=== PATIENT | male | born 1955 | race Caucasian/White ===

== ENCOUNTER 2020-10-14 07:35 | Outpatient (REF) | payer OTHER, SELFPAY ==
--- NOTE | ~2020-10-14 | XR_ITS ---
EXAMINATION: XR KNEE, RIGHT XR KNEE AP STANDING CLINICAL INFORMATION: Pain. COMPARISON: Prior radiographs dated 01/01/2019 and 09/23/2015. TECHNIQUE: AP, lateral, tunnel, and sunrise views of the right knee. AP bilateral standing view of the knees was obtained. FINDINGS: Bony alignment and mineralization are normal. There is marked right knee tricompartment osteoarthritis, with joint space narrowing and peripheral osteophyte formation. Multiple right knee loose bodies are redemonstrated. A moderate right knee joint effusion is suspected. No fracture is seen. There is no foreign body. There is very mild narrowing of the medial and lateral joint space compartments of the left knee, with small peripheral osteophytes. Question small loose body within the lateral joint space compartment. There is a slight valgus configuration of the right knee. No significant varus or valgus configuration is seen of the left knee. XR/XR knee RT 2V IMPRESSION: 1. There is marked tricompartment osteoarthritic change of the right knee, similar in appearance to 01/01/2019 and increased from 09/22/2015. 2. Right knee loose bodies are seen. 3. There is a slight valgus configuration of the right knee. 4. There is very mild osteoarthritic change of the lateral and medial joint space compartments of the left knee. 5. Question small loose body within the lateral joint space compartment of the left knee.
--- NOTE | ~2020-10-14 | XR_ITS ---
EXAMINATION: XR KNEE, RIGHT XR KNEE AP STANDING CLINICAL INFORMATION: Pain. COMPARISON: Prior radiographs dated 01/01/2019 and 09/23/2015. TECHNIQUE: AP, lateral, tunnel, and sunrise views of the right knee. AP bilateral standing view of the knees was obtained. FINDINGS: Bony alignment and mineralization are normal. There is marked right knee tricompartment osteoarthritis, with joint space narrowing and peripheral osteophyte formation. Multiple right knee loose bodies are redemonstrated. A moderate right knee joint effusion is suspected. No fracture is seen. There is no foreign body. There is very mild narrowing of the medial and lateral joint space compartments of the left knee, with small peripheral osteophytes. Question small loose body within the lateral joint space compartment. There is a slight valgus configuration of the right knee. No significant varus or valgus configuration is seen of the left knee. XR/XR knee standing BI IMPRESSION: 1. There is marked tricompartment osteoarthritic change of the right knee, similar in appearance to 01/01/2019 and increased from 09/22/2015. 2. Right knee loose bodies are seen. 3. There is a slight valgus configuration of the right knee. 4. There is very mild osteoarthritic change of the lateral and medial joint space compartments of the left knee. 5. Question small loose body within the lateral joint space compartment of the left knee.
== END 2020-10-14 07:36 | disposition home or self-care (01) ==
LOC: HO.HOSX 07:35
PROVIDERS: Visit Provider Orthopaedic Surgery
DX: M17.0 Bilateral primary osteoarthritis of knee (principal)
CPT/HCPCS: 73560; 73565; J1040